=== PATIENT | female | born 1960 | race Caucasian/White ===

== ENCOUNTER 2021-11-03 16:51 | Emergency (ER) | payer MEDICAID ==
[~2021-11-03] VITALS: Ht 157.5 cm; Wt 87.0 kg
[2021-11-03] MEDS ORDERED: CEFTRIAXONE 1 G PREMIX 50 ML IV ONE (22:00)
[2021-11-03 22:42] LABS: BASOPHILS % 0.5 % (0.0-2.0); EOSINOPHILS % 2.7 % (0.0-5.0); HEMATOCRIT. 33.5 % (36.0-48.0); HEMOGLOBIN. 11.4 g/dL (12.0-16.0); MEAN CORPUSCULAR HEMOGLOBIN 28.6 pg (28.0-32.0); MEAN CORPUSCULAR VOLUME 84.2 fL (81.0-99.0); MEAN PLATELET VOLUME 8.2 fl (7.4-10.4); MONOCYTES % 13.9 % (2.0-8.0); NEUTROPHILS % 52.9 % (40.0-76.0); PLATELET 188 x1000/uL (130-400); RED BLOOD CELL COUNT 3.98 mill/uL (4.2-5.4); RED CELL DISTRIBUTION WIDTH 13.7 % (11.6-14.6)
[2021-11-03 22:48] LABS: CHLORIDE 95 mEq/L (98-107)
[2021-11-03] MEDS ORDERED: VANCOMYCIN 1,750 MG in DEXT 5% WATER 500 ML IV NR (23:30)
[2021-11-04 03:14] LABS: CLARITY URINE CLEAR (CLEAR); COLOR URINE YELLOW (YELLOW); KETONES URINE NEGATIVE (NEGATIVE); LEUKOCYTE ESTERASE URINE TRACE (NEGATIVE); NITRITE URINE NEGATIVE (NEGATIVE); OCCULT BLOOD URINE NEGATIVE (NEGATIVE); PROTEIN URINE 2+ (NEGATIVE); UROBILINOGEN URINE 0.2 E.U./dL (0.2-1.0)
[2021-11-04 12:20] VITALS: BP 129/81
== END 2021-11-04 12:42 | disposition short-term general hospital (02) ==
LOC: ER 16:51
DX: N18.6 End stage renal disease (principal); Z99.2 Dependence on renal dialysis; I10 Essential (primary) hypertension; Z90.49 Acquired absence of other specified parts of digestive tract; Z20.822 Contact with and (suspected) exposure to COVID-19
CPT/HCPCS: 36415; 80053; 81003; 83605; 85025; 87040; 87077; 87186; 87426; 96365; 96367; 99285; C9803; J0696; J3370; J7060

== ENCOUNTER 2023-11-25 12:25 | Inpatient (IN) | payer MEDICAID ==
[2023-11-25] VITALS (7 sets, daily range): BP systolic 163–180; BP diastolic 80–94; PULSE 78–115; RESP 21–35; TEMP 98–98.1
[~2023-11-25] VITALS: Ht 165.1 cm; Wt 86.6 kg
[2023-11-25] MEDS: ONDANSETRON HCL 4MG/2ML INJ IV ONE (12:45)
[2023-11-25] MEDS: FUROSEMIDE 40MG/4ML VIAL IVP ONE (13:57)
[2023-11-25] MEDS: ASPIRIN 325MG TABLET PO ONE (13:57)
[2023-11-25 14:00] LABS: BASOPHILS % 1.1 % (0.0-2.0); EOSINOPHILS % 2.7 % (0.0-5.0); HEMOGLOBIN. 10.9 g/dL (12.0-16.0); LYMPHOCYTES % 17.8 % (20.0-50.0); MEAN CORPUSCULAR HEMOGLOBIN 28.2 pg (28.0-32.0); MEAN CORPUSCULAR HGB CONC 32.1 g/dL (31.0-37.0); MEAN CORPUSCULAR VOLUME 87.8 fL (81.0-99.0); MEAN PLATELET VOLUME 8.5 fl (7.4-10.4); MONOCYTES % 8.8 % (2.0-8.0); NEUTROPHILS % 69.6 % (40.0-76.0); PLATELET 198 x1000/uL (130-400); RED BLOOD CELL COUNT 3.88 mill/uL (4.2-5.4); RED CELL DISTRIBUTION WIDTH 16.6 % (11.6-14.6); WHITE BLOOD COUNT 9.4 x1000/uL (4.5-11.0)
[2023-11-25 14:06] LABS: CHLORIDE 102 mEq/L (98-107); SODIUM 137 mEq/L (136-145)
[2023-11-25 14:07] LABS: CALCIUM 9.7 mg/dL (8.7-10.4); CARBON DIOXIDE 24 mEq/L (21-32)
[2023-11-25 14:12] LABS: GLUCOSE 119 mg/dL (70-105); TROPONIN I HIGH SENSITIVITY 21 ng/L (3.0-34); UREA NITROGEN BLOOD 33 mg/dL (9-23)
[2023-11-25 14:14] LABS: ALANINE AMINOTRANSFERASE 11 IU/L (10-49); ALBUMIN 4.1 g/dL (3.2-4.8); ASPARTATE AMINOTRANSFERASE 20 IU/L (<34); BILIRUBIN DIRECT 0.2 mg/dL (<=3.0); BILIRUBIN TOTAL 0.6 mg/dL (0.1-1.0); PROTEIN TOTAL 7.7 g/dL (6.0-8.3)
[2023-11-25 14:31] LABS: CREATININE 7.7 mg/dL (0.6-1.0)
[2023-11-25] MEDS: HYDRALAZINE 20MG/ML VIAL IV NR (17:15)
[2023-11-25 20:40] LABS: HEPATITIS B SURFACE ANTIGEN NEGATIVE (Negative)
[2023-11-25 20:59] LABS: HEPATITIS A AB IGM NEGATIVE (Negative)
[2023-11-25 21:00] LABS: HEPATITIS B CORE AB IGM NEGATIVE (Negative)
[2023-11-25 21:01] LABS: HEPATITIS C AB NON REACTIVE (Neg) (Negative)
[2023-11-25] MEDS ORDERED: ACET-3292 (22:49)
[2023-11-25] MEDS ORDERED: SEVELAMER PO (22:49)
[2023-11-25] MEDS ORDERED: AMLO10TA80 PO (22:49)
[2023-11-25] MEDS ORDERED: CARV25TA47 PO (22:49)
[2023-11-25] MEDS ORDERED: ACETAMINOPHEN 500MG TABLET PO PRN (23:15)
[2023-11-26] VITALS (22 sets, daily range): BP systolic 118–168; BP diastolic 53–85; PULSE 57–83; RESP 11–25; TEMP 97.2–98.2; O2SAT 88–100
[2023-11-26] MEDS: IPRATROPIUM/ALBUTEROL 0.5-3(2.5)MG/3ML NEB HHN SCH (00:29)
[2023-11-26 05:02] LABS: BASOPHILS % 0.6 % (0.0-2.0); EOSINOPHILS % 2.5 % (0.0-5.0); HEMATOCRIT. 28.3 % (36.0-48.0); HEMOGLOBIN. 9.2 g/dL (12.0-16.0); LYMPHOCYTES % 24.6 % (20.0-50.0); MEAN CORPUSCULAR HEMOGLOBIN 28.4 pg (28.0-32.0); MEAN CORPUSCULAR HGB CONC 32.5 g/dL (31.0-37.0); MEAN CORPUSCULAR VOLUME 87.5 fL (81.0-99.0); MEAN PLATELET VOLUME 8.7 fl (7.4-10.4); MONOCYTES % 13.1 % (2.0-8.0); NEUTROPHILS % 59.2 % (40.0-76.0); PLATELET 149 x1000/uL (130-400); RED BLOOD CELL COUNT 3.23 mill/uL (4.2-5.4); RED CELL DISTRIBUTION WIDTH 15.9 % (11.6-14.6); WHITE BLOOD COUNT 6.6 x1000/uL (4.5-11.0)
[2023-11-26 05:10] LABS: POTASSIUM 5.2 mEq/L (3.5-5.1)
[2023-11-26 05:12] LABS: CALCIUM 9.1 mg/dL (8.7-10.4)
[2023-11-26 05:55] LABS: CREATININE 8.7 mg/dL (0.6-1.0)
[2023-11-26 08:16] LABS: PROTHROMBIN TIME 11.2 sec (9.6-11.0)
[2023-11-26] MEDS ORDERED: SEVELAMER PO SCH (09:00)
[2023-11-26] MEDS ORDERED: ACETAMINOPHEN PO SCH (09:00)
[2023-11-26] MEDS ORDERED: MEDICATION NOT ON FORMULARY EA (Carvedilol 1 TAB) PO SCH (09:00)
[2023-11-26] MEDS: AMLODIPINE 10MG TABLET PO SCH (09:10)
[2023-11-26] MEDS: SEVELAMER CARBONATE 800 MG TABLET PO SCH (09:10)
[2023-11-26] MEDS: CARVEDILOL 12.5MG TABLET PO SCH (09:12)
[2023-11-26] MEDS: HYDRALAZINE HCL 100MG TABLET PO SCH (10:30)
[2023-11-26] MEDS ORDERED: LIDOCAINE HCL 1% 10 MG/ML 10ML VIAL ONE ×2 (13:34→13:52)
[2023-11-26] MEDS: ZOLPIDEM TARTRATE 5MG TABLET PO NR (21:11)
[2023-11-27] VITALS (26 sets, daily range): BP systolic 121–159; BP diastolic 60–109; PULSE 64–86; RESP 14–27; TEMP 97.8–99.1; O2SAT 97–98
[2023-11-27] MEDS: EPOETIN ALFA 4000UNITS/ML VIAL SUBCUT SCH (21:21)
[2023-11-28] VITALS (16 sets, daily range): BP systolic 120–147; BP diastolic 64–93; PULSE 60–86; RESP 13–24; TEMP 97.4–98.8; O2SAT 96–98
[2023-11-28] MEDS: OXYMETAZOLINE HCL NASAL SPRAY 15ML BOTHNSTRLS SCH (12:49)
== END 2023-11-28 19:46 | disposition home or self-care (01) | DRG 194 ==
LOC: ER 12:25 → EDBEDREQ 12:51 → EDBEDREQTM 14:29 → EDBEDREQSVC 14:29 → 5EST 19:33
PROVIDERS: ADMIT Internal Medicine; ATTEND Internal Medicine
PROC: 5A09357 Assistance with Respiratory Ventilation, Less than 24 Consecutive Hours, Continuous Positive Airway Pressure (ICD-10-PCS; principal; 2023-11-25)
PROC: 5A1D70Z Performance of Urinary Filtration, Intermittent, Less than 6 Hours Per Day (ICD-10-PCS; 2023-11-26)
PROC: 0JPV3XZ Removal of Tunneled Vascular Access Device from Upper Extremity Subcutaneous Tissue and Fascia, Percutaneous Approach (ICD-10-PCS; 2023-11-26)
PROC: 05PY33Z Removal of Infusion Device from Upper Vein, Percutaneous Approach (ICD-10-PCS; 2023-11-26)
PROC: 5A1D70Z Performance of Urinary Filtration, Intermittent, Less than 6 Hours Per Day (ICD-10-PCS; 2023-11-27)
DX: I13.2 Hypertensive heart and chronic kidney disease with heart failure and with stage 5 chronic kidney disease, or end stage renal disease (principal); J96.01 Acute respiratory failure with hypoxia; I50.43 Acute on chronic combined systolic (congestive) and diastolic (congestive) heart failure; N18.6 End stage renal disease; D64.9 Anemia, unspecified; Z99.2 Dependence on renal dialysis; D63.1 Anemia in chronic kidney disease; E78.5 Hyperlipidemia, unspecified; I16.0 Hypertensive urgency; Z79.899 Other long term (current) drug therapy; Z90.49 Acquired absence of other specified parts of digestive tract
CPT/HCPCS: 36415; 36589; 71045; 80048; 80076; 84484; 85025; 86705; 86709; 87340; 90935; 93005; 93306; 94640; 94660; 99291; C1893; J0360; J0885; J1940; J2405; J3490

== ENCOUNTER 2024-02-10 08:41 | Inpatient (IN) | payer MEDICAID ==
[2024-02-10] VITALS (11 sets, daily range): BP systolic 160–173; BP diastolic 80–98; PULSE 68–89; RESP 19–24; TEMP 36.22512–36.4736; O2SAT 91–95
[~2024-02-10] VITALS: Ht 162.6 cm; Wt 84.8 kg
[~2024-02-10 08:41] MED LIST: ACET-3292; AMLO10TA80 PO; CARV25TA47 PO; LOSA50TA41 PO; SEVELAMER PO
[2024-02-10 09:39] LABS: BASOPHILS % 0.6 % (0.0-2.0); EOSINOPHILS % 2.6 % (0.0-5.0); HEMATOCRIT. 32.6 % (36.0-48.0); HEMOGLOBIN. 10.6 g/dL (12.0-16.0); LYMPHOCYTES % 16.2 % (20.0-50.0); MEAN CORPUSCULAR HEMOGLOBIN 28.6 pg (28.0-32.0); MEAN CORPUSCULAR HGB CONC 32.5 g/dL (31.0-37.0); MEAN PLATELET VOLUME 8.5 fl (7.4-10.4); MONOCYTES % 9.3 % (2.0-8.0); NEUTROPHILS % 71.3 % (40.0-76.0); PLATELET 154 x1000/uL (130-400); RED CELL DISTRIBUTION WIDTH 16.5 % (11.6-14.6); WHITE BLOOD COUNT 6.2 x1000/uL (4.5-11.0)
[2024-02-10 09:50] LABS: CHLORIDE 105 mEq/L (98-107); POTASSIUM 5.3 mEq/L (3.5-5.1); PROTHROMBIN TIME 10.9 sec (9.6-11.0); SODIUM 137 mEq/L (136-145)
[2024-02-10 09:51] LABS: CALCIUM 10.1 mg/dL (8.7-10.4); CARBON DIOXIDE 24 mEq/L (21-32)
[2024-02-10 09:56] LABS: GLUCOSE 104 mg/dL (70-105); UREA NITROGEN BLOOD 38 mg/dL (9-23)
[2024-02-10 09:57] LABS: ALANINE AMINOTRANSFERASE 13 IU/L (10-49); ASPARTATE AMINOTRANSFERASE 16 IU/L (<34); TROPONIN I HIGH SENSITIVITY 22 ng/L (3.0-34)
[2024-02-10 09:58] LABS: ALBUMIN 3.9 g/dL (3.2-4.8); BILIRUBIN TOTAL 0.4 mg/dL (0.1-1.0); PROTEIN TOTAL 7.6 g/dL (6.0-8.3)
[2024-02-10] MEDS: NITROGLYCERIN OINT 1GM/INCH UDPKT TD ONE (09:58)
[2024-02-10 10:07] LABS: CREATININE 7.2 mg/dL (0.6-1.0)
[2024-02-10 11:57] LABS: TROPONIN I HIGH SENSITIVITY 27 ng/L (3.0-34)
[2024-02-10] MEDS ORDERED: ONDANSETRON HCL 4MG/2ML INJ IV PRN (13:45)
[2024-02-10] MEDS ORDERED: DIPHENHYDRAMINE 50MG/ML VIAL IV PRN (13:45)
[2024-02-10] MEDS ORDERED: IPRATROPIUM/ALBUTEROL 0.5-3(2.5)MG/3ML NEB HHN PRN (13:45)
[2024-02-10] MEDS: HYDRALAZINE 20MG/ML VIAL IV ONE (14:13)
[2024-02-10] MEDS: CLONIDINE 0.1MG TABLET PO PRN (16:51)
[2024-02-10 18:17] LABS: HEPATITIS B SURFACE ANTIGEN NEGATIVE (Negative)
[2024-02-10 18:38] LABS: HEPATITIS A AB IGM NEGATIVE (Negative); HEPATITIS B CORE AB IGM NEGATIVE (Negative)
[2024-02-10 18:39] LABS: HEPATITIS C AB NON REACTIVE (Neg) (Negative)
[2024-02-10] MEDS: HYDRALAZINE 20MG/ML VIAL IV PRN (20:50)
[2024-02-11 00:08] VITALS: BP 149/68; PULSE 73; RESP 20; TEMP 36.72516; O2SAT 97
[2024-02-11] MEDS: IPRATROPIUM/ALBUTEROL 0.5-3(2.5)MG/3ML NEB HHN SCH (00:23)
[2024-02-11 04:00] VITALS: BP 141/91; PULSE 75; RESP 20; TEMP 36.89184; O2SAT 97
[2024-02-11 06:24] LABS: POTASSIUM 4.8 mEq/L (3.5-5.1)
[2024-02-11 06:25] LABS: CALCIUM 10.5 mg/dL (8.7-10.4)
[2024-02-11 06:39] LABS: BASOPHILS % 0.6 % (0.0-2.0); EOSINOPHILS % 3.1 % (0.0-5.0); HEMATOCRIT. 29.7 % (36.0-48.0); HEMOGLOBIN. 9.7 g/dL (12.0-16.0); LYMPHOCYTES % 28.1 % (20.0-50.0); MEAN CORPUSCULAR HEMOGLOBIN 28.5 pg (28.0-32.0); MEAN CORPUSCULAR HGB CONC 32.7 g/dL (31.0-37.0); MEAN CORPUSCULAR VOLUME 87.3 fL (81.0-99.0); MEAN PLATELET VOLUME 9.2 fl (7.4-10.4); MONOCYTES % 13.6 % (2.0-8.0); NEUTROPHILS % 54.6 % (40.0-76.0); PLATELET 132 x1000/uL (130-400); WHITE BLOOD COUNT 4.7 x1000/uL (4.5-11.0)
[2024-02-11 08:00] VITALS: BP 169/79; PULSE 77; RESP 16; TEMP 35.5584; O2SAT 95
[2024-02-11 08:04] LABS: CREATININE 6.2 mg/dL (0.6-1.0)
[2024-02-11] MEDS: FUROSEMIDE 40MG/4ML VIAL IV SCH (09:21)
[2024-02-11 12:00] VITALS: BP_SYST 175; BP_SYST 177; BP_DIAS 95; BP_DIAS 96; PULSE 80; RESP 18; TEMP 36.61404; O2SAT 99
[2024-02-11] MEDS: GUAIFENESIN 600MG ER TABLET PO SCH (13:05)
[2024-02-11] MEDS: LIDOCAINE 5% PATCH TOP SCH (13:05)
[2024-02-11 16:00] VITALS: BP 149/79; PULSE 71; RESP 18; TEMP 36.3918; O2SAT 99
[2024-02-11 20:00] VITALS: BP 136/71; PULSE 73; RESP 18; TEMP 36.114; O2SAT 98
[2024-02-12] VITALS (21 sets, daily range): BP systolic 135–195; BP diastolic 65–94; PULSE 64–87; RESP 16–20; TEMP 36.16956–36.61404; O2SAT 94–100
[2024-02-12 06:21] LABS: POTASSIUM 5.7 mEq/L (3.5-5.1)
[2024-02-12 06:22] LABS: CALCIUM 10.1 mg/dL (8.7-10.4); HEMATOCRIT. 30.5 % (36.0-48.0); HEMOGLOBIN. 9.9 g/dL (12.0-16.0); LYMPHOCYTES % 31.6 % (20.0-50.0); MEAN CORPUSCULAR HGB CONC 32.6 g/dL (31.0-37.0); MEAN CORPUSCULAR VOLUME 88.9 fL (81.0-99.0); MEAN PLATELET VOLUME 9.5 fl (7.4-10.4); MONOCYTES % 12.5 % (2.0-8.0); NEUTROPHILS % 51.9 % (40.0-76.0); PLATELET 149 x1000/uL (130-400); RED BLOOD CELL COUNT 3.43 mill/uL (4.2-5.4); RED CELL DISTRIBUTION WIDTH 16.7 % (11.6-14.6); WHITE BLOOD COUNT 5.1 x1000/uL (4.5-11.0)
[2024-02-13] VITALS (34 sets, daily range): BP systolic 110–184; BP diastolic 62–125; PULSE 67–125; RESP 12–32; TEMP 36.16956–37.11408; O2SAT 89–99
[2024-02-13] MEDS: DILTIAZEM HCL 5MG/ML 5ML VIAL IV NR (08:40)
[2024-02-13] MEDS: ENOXAPARIN 80MG/0.8ML SYR SUBCUT SCH (09:37)
[2024-02-13] MEDS: DILTIAZEM HCL 90MG TABLET PO SCH (09:38)
[2024-02-13] MEDS ORDERED: AMIODARONE HCL 900 MG in DEXT 5% WATER 482 ML IV SCH (10:00)
[2024-02-13] MEDS: AMIODARONE 150MG/100ML 100 ML IV NR (10:17)
[2024-02-14] VITALS (21 sets, daily range): BP systolic 120–153; BP diastolic 43–91; PULSE 66–84; RESP 15–25; TEMP 36.50292–36.89184; O2SAT 94–100
[2024-02-14] MEDS ORDERED: DILT90TA2 PO (10:15)
[2024-02-14] MEDS ORDERED: APIX5TAB MT (10:15)
[2024-02-14] MEDS: ACETAMINOPHEN 325MG TABLET PO PRN (12:18)
== END 2024-02-14 17:57 | disposition home or self-care (01) | DRG 425 ==
LOC: ER 08:43 → 5WST 11:51 → EDBEDREQ 11:53 → 7WST 21:00 → 5EST 02-13 09:20
PROVIDERS: ADMIT Internal Medicine; ATTEND Internal Medicine
PROC: 5A1D70Z Performance of Urinary Filtration, Intermittent, Less than 6 Hours Per Day (ICD-10-PCS; principal; 2024-02-10)
PROC: 5A1D70Z Performance of Urinary Filtration, Intermittent, Less than 6 Hours Per Day (ICD-10-PCS; 2024-02-12)
PROC: 5A1D70Z Performance of Urinary Filtration, Intermittent, Less than 6 Hours Per Day (ICD-10-PCS; 2024-02-14)
DX: E87.70 Fluid overload, unspecified (principal); J96.01 Acute respiratory failure with hypoxia; I50.33 Acute on chronic diastolic (congestive) heart failure; I13.2 Hypertensive heart and chronic kidney disease with heart failure and with stage 5 chronic kidney disease, or end stage renal disease; N18.6 End stage renal disease; E87.5 Hyperkalemia; Z20.822 Contact with and (suspected) exposure to COVID-19; D64.9 Anemia, unspecified; K21.9 Gastro-esophageal reflux disease without esophagitis; I48.0 Paroxysmal atrial fibrillation; I16.0 Hypertensive urgency; Z99.2 Dependence on renal dialysis; Z90.49 Acquired absence of other specified parts of digestive tract; Z91.158 Patient's noncompliance with renal dialysis for other reason
CPT/HCPCS: 36415; 71045; 80048; 80053; 83880; 84443; 84484; 85025; 86705; 86709; 86850; 86900; 87340; 87426; 90935; 93005; 93970; 94640; 99291; J0282; J0360; J1650; J1940; J3490; J7060